=== PATIENT | male | born 1980 | race Caucasian/White ===

== ENCOUNTER 2017-04-13 01:05 | Emergency (ER) | payer OTHER ==
[~2017-04-13] VITALS: Ht 177.8 cm; Wt 104.3 kg
[2017-04-13 01:09] VITALS: BP_SYST 115
[2017-04-13] MEDS ORDERED: IBUPROFEN 600 MG TABLET PO ONE (01:30)
[2017-04-13] MEDS ORDERED: CLINDAMYCIN HCL 150 MG CAPSULE PO ONE (01:30)
[2017-04-13 02:18] VITALS: BP_SYST 119
== END 2017-04-13 02:18 | disposition home or self-care (01) ==
LOC: SED 01:05
DX: L03.116 Cellulitis of left lower limb (principal)
CPT/HCPCS: 99283

== ENCOUNTER 2020-09-28 14:08 | Emergency (ER) | payer MEDICAID, OTHER ==
[~2020-09-28] VITALS: Ht 175.3 cm; Wt 106.6 kg
--- NOTE | 2020-09-28 14:10 | NUR ---
Patient to ER bed 5 to gown for evaluation. Side rails up.
[2020-09-28 14:13] VITALS: BP_SYST 130
--- NOTE | 2020-09-28 14:15 | NUR ---
Pt walked in to ER with c/o left hip pain shooting down leg, 12/28 x1 day. Denies any trauma or injury. V/S stable, no acute distress noted.
--- NOTE | 2020-09-28 14:37 | NUR ---
ER Dr. Simpson at bedside examining patient.
--- NOTE | 2020-09-28 14:58 | NUR ---
Patient transported to radiology via wheelchair, accompanied by staff.
--- NOTE | 2020-09-28 15:45 | NUR ---
Patient given written and verbal discharge instructions and verbalizes understanding. ER MD discussed with patient the results and treatment provided. Patient in stable condition. ID arm band removed. No prescriptions given. Patient educated on pain management and to follow up with PMD. Pain Scale 0. Opportunity for questions provided and answered. Medication side effect fact sheet provided.
[2020-09-28 15:49] VITALS: BP_SYST 140
== END 2020-09-28 15:45 | disposition home or self-care (01) ==
LOC: SED 14:08
DX: S76.012A Strain of muscle, fascia and tendon of left hip, initial encounter (principal); F12.90 Cannabis use, unspecified, uncomplicated; X50.9XXA Other and unspecified overexertion or strenuous movements or postures, initial encounter; Y93.89 Activity, other specified; Y92.89 Other specified places as the place of occurrence of the external cause; Y99.8 Other external cause status
CPT/HCPCS: 72170-TC; 73502; 99284

== ENCOUNTER 2021-01-31 16:54 | Emergency (ER) | payer MEDICAID ==
[~2021-01-31] VITALS: Ht 175.3 cm; Wt 104.3 kg
[2021-01-31 17:13] VITALS: BP_SYST 117
[2021-01-31] MEDS ORDERED: OXYCODONE/ACETAMINOPHEN 5-325 TABLET PO ONE (18:45)
[2021-01-31] MEDS ORDERED: IBUP-1969 PO (19:19)
[2021-01-31] MEDS ORDERED: HYDR-3917 PO (19:22)
[2021-01-31 19:35] VITALS: BP_SYST 117
== END 2021-01-31 19:35 | disposition home or self-care (01) ==
LOC: SED 16:54
DX: M23.91 Unspecified internal derangement of right knee (principal); Z79.899 Other long term (current) drug therapy
CPT/HCPCS: 73564; 99283

== ENCOUNTER 2021-06-24 09:52 | Emergency (ER) | payer MEDICAID, SELFPAY ==
[~2021-06-24] VITALS: Ht 177.8 cm; Wt 99.8 kg
[~2021-06-24 09:52] MED LIST: HYDR-3917 PO; IBUP-1969 PO
[2021-06-24 10:35] VITALS: BP_SYST 118
[2021-06-24] MEDS ORDERED: KETOROLAC TROMETHAMINE 15 MG VIAL IVP ONE (11:00)
[2021-06-24] MEDS ORDERED: NACL 0.9% 1,000 ML IV ONE ×2 (11:15→12:15)
[2021-06-24 11:29] LABS: BASOPHILS # (AUTO) 0.1 K/uL (0.0-0.2); BASOPHILS % (AUTO) 1.1 % (0.0-2.0); EOSINOPHILS # (AUTO) 0.2 K/uL (0.0-0.4); EOSINOPHILS % (AUTO) 4.9 % (0.0-4.0); HEMATOCRIT 42.3 % (36-54); HEMOGLOBIN 14.1 g/dL (14.0-18.0); LYMPHOCYTES # (AUTO) 1.3 K/uL (1.0-5.5); LYMPHOCYTES % (AUTO) 27.1 % (20.5-51.5); MEAN CORPUSCULAR HEMOGLOBIN 31 pg (27-31); MEAN CORPUSCULAR HGB CONC 33 % (32-36); MEAN CORPUSCULAR VOLUME 92 fL (79.0-98.0); MONOCYTES # (AUTO) 0.3 K/uL (0.0-1.0); MONOCYTES % (AUTO) 6.1 % (1.7-9.3); NEUTROPHILS # (AUTO) 2.9 K/uL (1.8-7.7); NEUTROPHILS % (AUTO) 60.8 % (40.0-70.0); PLATELET COUNT (AUTO) 280 K/uL (130-430); RED CELL DISTRIBUTION WIDTH 13.8 % (9.0-15.0); WHITE BLOOD COUNT (AUTO) 4.8 K/uL (4.8-10.8)
[2021-06-24 11:40] LABS: CALCIUM 8.6 mg/dL (8.4-11.0); CREATININE 0.92 mg/dL (0.55-1.30); POTASSIUM 4.2 mmol/L (3.5-5.1)
[2021-06-24 11:45] LABS: ALBUMIN 3.7 g/dL (3.4-4.8); TOTAL BILIRUBIN 0.2 mg/dL (0.0-1.0)
[2021-06-24] MEDS ORDERED: NAPR-688 PO (13:24)
[2021-06-24] MEDS ORDERED: LIDO1ADH22 TP (13:27)
[2021-06-24 14:21] LABS: BILIRUBIN,URINE NEGATIVE (NEGATIVE); BLOOD, URINE NEGATIVE (NEGATIVE); CLARITY/URINE CLEAR (CLEAR); COLOR,URINE YELLOW (YELLOW); GLUCOSE,URINE NEGATIVE (NEGATIVE); KETONES,URINE NEGATIVE (NEGATIVE); LEUKOCYTE ESTERASE ,URINE NEGATIVE (NEGATIVE); NITRITE, URINE NEGATIVE (NEGATIVE); PROTEIN URINE NEGATIVE (NEGATIVE); UROBILINOGEN,URINE 0.2 (0.2-1.0)
[2021-06-24 14:51] VITALS: BP_SYST 118
[2021-06-28 20:06] LABS: CHLAMYDIA TRACHOMATIS NAA Negative (Negative); NEISSERIA GONORRHOEAE NAA Negative (Negative)
== END 2021-06-24 14:51 | disposition home or self-care (01) ==
LOC: SED 09:52
DX: S39.011A Strain of muscle, fascia and tendon of abdomen, initial encounter (principal); N50.811 Right testicular pain; I86.1 Scrotal varices; X58.XXXA Exposure to other specified factors, initial encounter; Y93.9 Activity, unspecified; Y92.9 Unspecified place or not applicable; Y99.9 Unspecified external cause status
CPT/HCPCS: 36415; 74176; 76376; 76870; 80053; 81003; 83690; 85025; 87491; 87591; 96361; 96374; 99284; J1885; J7030; 99285

== ENCOUNTER 2021-10-10 17:20 | Emergency (ER) | payer MEDICAID ==
[~2021-10-10] VITALS: Ht 177.8 cm; Wt 105.7 kg
[~2021-10-10 17:20] MED LIST changes: +LIDO1ADH22 TP; +NAPR-688 PO
[2021-10-10 17:45] VITALS: BP_SYST 125
--- NOTE | 2021-10-10 17:45 | NUR ---
Placed in room 2 . Placed on secured entrance monitor, blood pressure machine and pulse oximeter. To gown for exam. Side rails up. Report given to ERIS ESCOTO.
--- NOTE | 2021-10-10 17:50 | NUR ---
Patient arrived to ED 2 from for c/o left hand, middle knuckle from changing out shower stem and hand slipped and hit edge of tile. Patient said that he had throbbing area. Vital signs stable. Patient has slight open wound that was gushing blood. Patient held pressure to area. No distress noted.
[2021-10-10] MEDS: LIDOCAINE 1% 10 MG/ML, 20 ML MDV INJ ONE (18:46)
[2021-10-10] MEDS: IBUPROFEN 800 MG TABLET PO ONE (18:57)
[2021-10-10] MEDS: BACITRACIN 1 GM OINT TP ONE (18:57)
[2021-10-10] MEDS: DIPH-TET-PERTUS Vaccine 0.5 ML VIAL (ADACEL) I.M. ONE (19:00)
[2021-10-10 19:20] VITALS: BP_SYST 113
--- NOTE | 2021-10-10 19:20 | NUR ---
Patient given written and verbal discharge instructions and verbalizes understanding. ER Dr. Kahn discussed with patient the results and treatment provided. Patient in stable condition. ID arm band removed. Patient educated on pain management and to follow up with PMD. Pain Scale 0. Opportunity for questions provided and answered. Medication side effect fact sheet provided.
== END 2021-10-10 19:20 | disposition home or self-care (01) ==
LOC: SED 17:20
DX: S61.412A Laceration without foreign body of left hand, initial encounter (principal); Z79.899 Other long term (current) drug therapy; W45.8XXA Other foreign body or object entering through skin, initial encounter; Y93.89 Activity, other specified; Y92.89 Other specified places as the place of occurrence of the external cause; Y99.8 Other external cause status
CPT/HCPCS: 90715; 99283

== ENCOUNTER 2022-07-16 13:07 | Emergency (ER) | payer BC, MEDICAID ==
[~2022-07-16] VITALS: Ht 180.3 cm; Wt 103.4 kg
--- NOTE | 2022-07-16 13:10 | NUR ---
Patient arrived to ED 5 for c/o left hand pain index and middle finger from snowboarding yesterday. Patient used both hands to brace himself when he fell. Patient denies hitting his head. Patient denies bruising or any other areas that hurt. Patient said that throbbing pain started this morning. Patient came to ER to get it checked out and hopes it is "not a fracture or anything." Patient took tylenol yesterday for pain. Patient iced the left hand for one hour and "stiffness, throbbing resumed. Today it got worse according to patient. Patient noticed the area was bigger and swollen than today.
[2022-07-16 13:15] VITALS: BP_SYST 111
--- NOTE | 2022-07-16 14:14 | NUR ---
ER at bedside examining patient.
[2022-07-16] MEDS ORDERED: HYDR-3917 PO (14:18)
[2022-07-16] MEDS ORDERED: IBUP-1971 PO (14:18)
--- NOTE | 2022-07-16 14:25 | NUR ---
Patient given written and verbal discharge instructions and verbalizes understanding. ER MD discussed with patient the results and treatment provided. Patient in stable condition. ID arm band removed. Rx of NORCO. IBUPROFEN given. Patient educated on pain management and to follow up with PMD. Pain Scale 0/10. Opportunity for questions provided and answered. Medication side effect fact sheet provided.
== END 2022-07-16 14:25 | disposition home or self-care (01) ==
LOC: SED 13:07
DX: S63.653A Sprain of metacarpophalangeal joint of left middle finger, initial encounter (principal); Z79.899 Other long term (current) drug therapy; V00.311A Fall from snowboard, initial encounter; Y93.89 Activity, other specified; Y92.89 Other specified places as the place of occurrence of the external cause; Y99.8 Other external cause status
CPT/HCPCS: 99283